=== PATIENT | female | born 1955 | race Caucasian/White ===

== ENCOUNTER 2019-11-02 19:16 | Inpatient (IN) | payer MEDICARE, OTHER ==
[2019-11-02 23:24] VITALS: BP 136/78
[2019-11-02] MEDS ORDERED: Magnesium Hydroxide (MOM) 30 mL UDC PO PRN (23:25)
[2019-11-03] MEDS: Multivitamin Tab PO SCH (09:17)
--- NOTE | 2019-11-03 13:50 | Psych History & Physical ---
Psych History & Physical - Date of Admission Date of Admission: 11/03/19 - Identifying Data Identifying Data: Patient is a 64 year old F admitted to [facility] from [facility] due to worsening depression and status post suicide attempt by overdose of blood pressure pills. - Chief Complaint Chief Complaint: "depression" Informant: Chart Review, Patient - History of Present Illness History of Present Illness: Patient is a 64 year old F who recently admitted to [facility] on a 5150 hold for DTS started at [facility]. Per the hold, patient with severe worsening depression after becoming under 1 year ago which lead to suicide attempt where she consumed 2 handfuls of blood pressure pills in a serious attempt to end her life. The patient was seen by this provider at [facility] on the medical/surgical unit 2nd floor on 11/02/2019 morning where she presented still depressed and wanting to be with her who is now and not expressing any remorse for her recent attempt. Today she was visited bedside and reports ongoing depression. She desire to go home but admits that she feels depressed and hopeless with suicidal thoughts. She was started on Zoloft at [facility] and reports no side effects to the medications. She reports her sleep appetite and energy are all impaired. She denies micaela or psychosis symptoms. - Past Psych History Past Psych History: No previous psychiatric hospitalizations. No previous suicide attempts prior to this attempt. No outpatient therapy or psychiatry. - Substance Abuse History Substance Abuse History: Social History Smoking Status Never smoker Drug Use No Alcohol Use No - Medical History Medical History: see H&P - Medication Allergies Allergies/Adverse Reactions: Allergies Allergy/AdvReac Type Severity Reaction Status Date / Time No Known Allergies Allergy Verified 11/02/19 23:22 Current Medications: Current Medications Acetaminophen (Tylenol) 650 mg PO Q4H PRN PRN Reason: Pain (Mild 1-3) Stop: 01/01/20 23:24 Lorazepam (Ativan) 0.5 mg PO Q4HR PRN; Protocol PRN Reason: Agitation Stop: 12/02/19 23:24 Magnesium Hydroxide (Milk Of Magnesia) 30 ml PO HS PRN PRN Reason: Constipation Multivitamins/Vitamin C (Theragran) 1 tab PO DAILY BENJIE Stop: 01/02/20 08:59 Last Admin: 11/03/19 09:17 Dose: 1 tab Sertraline HCl (Zoloft) 25 mg PO DAILY BENJIE; Protocol Stop: 01/02/20 13:44 Zolpidem Tartrate (Ambien) 5 mg PO HS PRN PRN Reason: Insomnia Stop: 01/01/20 23:24 - Social History Social History: patient reports that she is recently under 1 year ago. she spends her day at home cleaning the house, taking care of grand kids. she lives with her children and grandchildren. Social History: Other (lives with her children and grandchildren. patient is a as of under 1 year ago.) - Physical or Sexual Abuse History Physical or Sexual Abuse History: Social History Hx Sexual Abuse Denies Hx Physical Abuse Denies Hx Emotional Abuse Denies - Family History Family History: No Significant - Legal Problem Legal Problem: No - Review of System Psychological ROS: Anxiety, Concentration difficulty, Depression, Sleep Disturbances, Suicidal Ideation - Mental Status Examination General Appearance: Casually dressed, Clean Behavior: Alert, Calm, Other (guarded) Speech: Soft Mood: Depressed Affect: Constricted Thought Process and Content: Normal Associations Cognition: Grossly Intact Intelegence: Average Insight: Impaired Judgement: Impaired - Vitals and I&O Vitals and I&O: Vital Signs Temp 97.6 F 11/03/19 06:29 Pulse 101 11/03/19 06:29 Resp 20 11/03/19 08:00 BP 123/67 11/03/19 06:29 Pulse Ox 96 11/03/19 06:29 Intake & Output 11/02/19 11/03/19 11/03/19 18:59 06:59 18:59 Weight (lbs) 69.173 kg Other: Weight Source Bedscale - Impressions Diagnosis: [place] I: Major Depressive Disorder, recurrent, severe, without psychosis Windsor II: none Windsor III: see H&P - Treatment/Plan Treatment/Plan: Patient to be provided individually therapy group and family consulting. Continue medication as ordered: Zoloft 25mg po daily started at [facility] will be resumed. Discussion of Psych Treatment: 1. Risk, benefits and side effects were explained; and patient understood and consented for treatment. 2. Patient's questions were answered in details. - Estimate Length of Stay Estimate Length of Stay: 2-5 days - Discharge Criteria Discharge Criteria: 1. Patient is no longer a threat to self or others. 2. Patient to be able to cope up with the stress.
[2019-11-04] MEDS: Multivitamin Tab PO SCH (08:48)
--- NOTE | 2019-11-04 09:44 | Progress Notes ---
DATE: 11/04/2019 SUBJECTIVE: Chart was reviewed and the patient interviewed. Also discussed the patient's condition with the staff and reviewed records and labs. Also, I got help with translation from the staff. The patient said that her a year ago and she [place] and she felt very bad when she was there and when she went home, she took the medications and she could not remember how many did she take. The patient said that she could not "wanted to sleep." The patient also said that she has been feeling hopeless and although she has good relationship with her children and she lives with 4 of them, yet she is still feeling depressed, and looks like never agrees her 's . During interview, the patient speaks [place] and staff helped with translation. She has poor eye contact with low tone and rate of speech. Thought process is goal directed. Today, the patient denies any thoughts of suicide or homicide, but she is in a depressed mood. ASSESSMENT: The patient is still depressed and is still high risk dangerous to herself. TREATMENT PLAN: We will continue to monitor behavior and condition closely. Also, we will work on her grieving and help to support the patient. I spoke to the patient's son who confirmed what the patient saying and we will continue to follow up with her condition. Also, we will increase Zoloft to 50 mg every day. JOB# [id number]
[2019-11-04] MEDS ORDERED: GLUCAGON HCl 1 MG KIT IM PRN (13:16)
[2019-11-04] MEDS: INSULIN LISPRO SLIDING SCALE 100 UNITS/ML UNIT SUBQ SCH ×2 (17:13→20:59)
[2019-11-04] MEDS ORDERED: Insulin Glargine 100 units/ml 10ml Vial SUBQ SCH (21:00)
[2019-11-05] MEDS: INSULIN LISPRO SLIDING SCALE 100 UNITS/ML UNIT SUBQ SCH ×4 (07:23→21:06)
[2019-11-05] MEDS: Multivitamin Tab PO SCH (09:59)
[2019-11-05] MEDS: Insulin Glargine 100 units/ml 10ml Vial SUBQ SCH (21:06)
--- NOTE | 2019-11-05 21:53 | Progress Notes ---
DATE: 11/05/2019 Chart was reviewed and the patient interviewed. Also discussed the patient's condition with the staff and reviewed records and labs. Also, I spoke with the patient's son yesterday in detail and explained to him the situation with his mother and also treatment plan. The patient is still in a depressed mood, but her affect is brighter and she seems to be less depressed and is also cooperative and compliant with taking her medications. She still has tendency to isolate herself. She also still has difficulty with grieving her who a year ago and his anniversary was right before her admission. The patient's son confirmed the information above and the patient seems to be at times lonely and she is "missed my ." Otherwise, the patient's Zoloft was increased yesterday to 50 mg every day with no side effects. We will continue same dose and we will continue to monitor her behavior and her condition closely. Also, working on supportive therapy and also to have family meeting. [facility]# [id number]
[2019-11-06] MEDS: INSULIN LISPRO SLIDING SCALE 100 UNITS/ML UNIT SUBQ SCH ×4 (06:46→20:22)
[2019-11-06] MEDS: Multivitamin Tab PO SCH (08:22)
--- NOTE | 2019-11-06 15:21 | Progress Notes ---
DATE: 11/05/2019 SUBJECTIVE: The patient has no complaints. OBJECTIVE: VITAL SIGNS: Temperature 98.5, pulse 92, respirations 18, blood pressure 125/65. HEENT: Normocephalic, atraumatic head exam. NECK: Supple. CARDIOVASCULAR: Rhythm. LUNGS: Clear. ABDOMEN: Soft, nontender. EXTREMITIES: No edema, cyanosis or clubbing. LABORATORY DATA: Blood sugar is still greater than 150. ASSESSMENT AND PLAN: Diabetes, poorly controlled. The patient's Lantus will be increased to 30 units at bedtime. We will continue to check Accu-Cheks every day. The patient will continue with the other medications. JOB# [id number]
--- NOTE | 2019-11-06 15:21 | History & Physical ---
ADMIT DATE: 11/02/2019 CHIEF COMPLAINT: Suicide attempt. I am seeing this patient at the request of Dr. Cavazos for medical management of diabetes. HISTORY OF PRESENT ILLNESS: We have a 64-year-old female with diabetes, hypertension, hyperlipidemia, who was transferred from [facility] for management of diabetes and hypertension. The patient attempted to commit suicide by taking medications. The patient was cleared in ER over there. At this time, the patient denies any chest pain, shortness of breath, nausea, vomiting, abdominal pain or diarrhea. PAST MEDICAL HISTORY: Diabetes, hypertension. PAST SURGICAL HISTORY: Leg surgery. MEDICATION LIST: Reviewed. ALLERGIES: None. SOCIAL HISTORY: Tobacco, IV drugs, ETOH negative. REVIEW OF SYSTEMS: Noncontributory. PHYSICAL EXAMINATION: HEENT: Normocephalic, atraumatic exam. NECK: Supple. CARDIAC: Regular rate and rhythm. LUNGS: Decreased breath sounds. ABDOMEN: Soft, nontender. EXTREMITIES: No edema, cyanosis or clubbing. ASSESSMENT: 1. Suicide attempt. 2. Diabetes and hypertension. 3. Diabetes, poorly controlled. PLAN: We will get consult with Accu-Cheks q.a.c. and at bedtime. We will give sliding scale insulin. We will do routine labs. JOB# [id number]
[2019-11-06] MEDS: Insulin Glargine 100 units/ml 10ml Vial SUBQ SCH (20:21)
--- NOTE | 2019-11-06 20:26 | Progress Notes ---
DATE: 11/06/2019 SUBJECTIVE: No complaints. OBJECTIVE: VITAL SIGNS: Temperature is 99.1, pulse of 93, respirations 20, blood pressure 113/54. HEENT: Head, normocephalic, atraumatic. NECK: Supple. CARDIOVASCULAR: Regular rate and rhythm. LUNGS: Decreased breath sounds. ABDOMEN: Soft, nontender. EXTREMITIES: No edema, cyanosis, or clubbing. Diabetes, hypertension. PLAN: We will continue supportive care. JOB# [id number]
--- NOTE | 2019-11-06 22:11 | Progress Notes ---
DATE: SUBJECTIVE: Chart reviewed and the patient interviewed. Also discussed the patient's condition with the staff and reviewed records and labs. The patient was tearful during my interview. I got help with translation from the staff from Taiwanese to Greek and vice versa. The patient also said that she was not able to sleep last night and her appetite is poor and has no desire to eat. "I want to go home." She is still feeling hopeless, but she denies any intention to harm herself or others. The patient also had a visit from her son and her daughter yesterday that are supportive to her. During interview, the patient is depressed and anxious. Tearful. Denies any thoughts of suicide or homicide and seems to be slightly preoccupied with her thoughts. ASSESSMENT: The patient is still depressed. TREATMENT PLAN: We will increase Zoloft to 75 mg every day. Also, we will add trazodone 25 mg at bedtime. I tried to call her son, ____, phone #[phone] and I left a message. At the same time, we will try to get a hold of him to discuss discharge plans and next level of treatment when appropriate. JOB# [id number]
[2019-11-07] MEDS: INSULIN LISPRO SLIDING SCALE 100 UNITS/ML UNIT SUBQ SCH ×3 (06:45→16:30)
--- NOTE | 2019-11-07 07:57 | Discharge Summary ---
DATE OF DISCHARGE: 11/07/2019 AGE: 64. SEX: Female. PHYSICIAN: Dr. Cavazos. FINAL DIAGNOSIS AND PRIMARY DIAGNOSIS: Depressive mood disorder, severe, recurrent, without psychotic features. REASON FOR HOSPITALIZATION: The patient was admitted to the hospital because of suicidal ideations and attempt by overdose on pills. The patient was admitted to the [facility] and evaluated by Dr. Benson and upon her medical clearance, she was transferred on to the [facility] on 5150 hold. HOSPITAL COURSE: The patient continued to be severely depressed. The patient continued to take Zoloft, but the dose adjusted to 75 mg every day. The patient also was tearful at times and she was grieving on her 's , who a year prior to her admission and it was his anniversary of the and that is why she "miss him." She also was isolative and withdrawn, mostly because of language issues. The patient also has trouble sleeping at night and trazodone 25 mg at bedtime was added. The patient was not suicidal or homicidal, and she was compliant with her medications. Physical exam of the patient was showing no acute medical issues. Labs were within normal. AFTER DISCHARGE PLANS: The patient returned home with plans to continue counseling with a therapist that she is seeing in the [facility]. Also, the patient is to see me for adjusting her psychotropic medications and the patient was given appointment to see me in my office in [place] on 11/13/2019 at 10:45. I spoke with patient's son twice in regard to his mother condition and about treatment plans and the patient's son said that the patient has good support system and that he was agreeable with discharge plans. EXPECTED OUTCOME AFTER DISCHARGE: Fair if the patient continued to take his psychotropic medications and follow up with discharge plans. JOB# [id number]
[2019-11-07] MEDS: Multivitamin Tab PO SCH (09:02)
--- NOTE | 2019-11-07 16:10 | Progress Notes ---
DATE: 11/07/2019 SUBJECTIVE: The patient denies any complaints. No chest pain, shortness of breath, nausea or vomiting. OBJECTIVE: VITAL SIGNS: Temperature is 98.7, pulse 94, respirations 18, blood pressure is 98/56. HEENT: Normocephalic, atraumatic head exam. NECK: Supple. CARDIOVASCULAR: Regular rate and rhythm. LUNGS: Clear. ABDOMEN: Soft, nontender. EXTREMITIES: No edema, cyanosis or clubbing. ASSESSMENT AND PLAN: 1. Diabetes. 2. Hypertension. 3. Depression. I have discussed the case with Dr. Cavazos. The patient will be discharged home by Dr. Cavazos. The patient was advised to continue to follow Accu-Cheks at home for diabetes. JOB# [id number]
[2019-11-07] MEDS ORDERED: Insulin Glargine 100 units/ml 10ml Vial SUBQ SCH (21:00)
== END 2019-11-07 17:30 | disposition home or self-care (01) | DRG 885 ==
LOC: GERO 22:50
PROVIDERS: ADMIT Psychiatry & Neurology Psychiatry; ATTEND Psychiatry & Neurology Psychiatry
DX: F33.9 Major depressive disorder, recurrent, unspecified (principal); E11.65 Type 2 diabetes mellitus with hyperglycemia; I10 Essential (primary) hypertension; E78.5 Hyperlipidemia, unspecified; Z79.4 Long term (current) use of insulin
CPT/HCPCS: 82948-90; 83036-90; G0410; J1815; Z7610